=== PATIENT | male | born 1980 | race Caucasian/White ===

== ENCOUNTER 2024-07-03 13:00 | Outpatient (AMB) | payer MEDICAID, SELFPAY ==
--- NOTE | 2024-07-03 13:05 | A.OFFVIS_ITS ---
Vital Signs 07/03/24 13:07 Height 6 ft 2 in Weight 255 lb BMI 32.7 Intake Visit Reasons: CERTIFIED PROSTHETIST/ORTHOTIST- dupuytren's syndrome Intake Note: Mukesh is a 43 year old right hand dominant male who presents today as a new patient for severe Dupuytren's on both hands. Patient denies numbness and tingling. Patient states his middle, ring, and small fingers are catching, bilaterally. Patient is also concerned for bumps on right right thumb as well as multiple knuckles. Patient has tried warm cloths and OT without relief of his symptoms. Patient reports right thumb injury/laceration when he was a kid. Denies any surgeries to the hands. Allergies No Known Allergies Allergy (Verified 07/03/24 13:07) HPI HPI CERTIFIED PROSTHETIST/ORTHOTIST- dupuytren's syndrome: Details: Mukesh is a 43 year old right hand dominant man who presents with complaints of bilateral hand contractures He complains of contractures of his of his middle, ring, and small fingers bilaterally, R>L. He has found no relief from OT in the past. He also complains of bumps on his right thumb and multiple knuckles. He says he is new to having a primary care doctor, and is in the process of getting his health on track. He has a Hx of Hepatitis C, he says this has been treated but he is due for new blood work to confirm if this is still active or not He has a hx of a laceration to his right thumb as a child. He denies any prior surgeries. 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 He is worried he may be evicted soon He is on Adderall & Methadone. He has a hx of IVDU, with some active use of xylozene. [facility] Social History (Updated 07/03/24 @ 13:07 by MALLORY Tolbert) Current occupational status: unemployed Current occupation: rt handed Review of Systems Const All systems reviewed & are unremarkable except as noted in HPI and below Physical Exam Vital Signs: BMI result Body Mass Index 32.7 Const General: cooperative, healthy appearing and no acute distress Orientation/consciousness: patient oriented x3 HEENT Head: Yes normocephalic and Yes atraumatic Eyes EOM: EOMs intact bilaterally Resp Effort & Inspection: normal respiratory effort and able to speak in complete sentences Cardio Jugular venous distension: no JVD Skin General skin exam: turgor normal Rashes: no rashes Neuro General: patient oriented x3 Extrem Other: Evaluation of Bilateral Upper Extremity: The patient is alert, oriented, and in no acute distress Neuro: Median, Ulnar, Radial nerves motor and sensory intact and sensation is normal to the tips of all digits Vascular: Cap refill brisk ROM: Right hand: He can make a fist He has a Central Dupuytrens cord extending from the palm to the ring & small fingers of the right hand He has an ulnar cord extending from the palm to the middle & index fingers There is a cord extending up the radial side of the thumb, to the IP joint. No contractures in the thumb or index fingers Small finger: MCP 100/PIP 80 Ring finger: 85/95 Middle finger: 45/45 There are knuckle pads to all knuckles of his right hand, and the dorsum of the thumb Left hand: He can make a fist Central cord to small & ring fingers Small finger: MCP 95/PIP 85 Ring finger: 75/85 Middle finger: 40/5 Skin: No lacerations or abrasions. General: No Ecchymosis. No Erythema or evidence of infection. Psych Appearance: grossly normal Affect: normal affect Attitude: cooperative Assessment & Plan Assessment & Plan (1) Dupuytren's contracture of right hand: Code(s): M72.0 - Palmar fascial fibromatosis [Dupuytren] Category: Medical (2) Dupuytren contracture of left hand: Code(s): M72.0 - Palmar fascial fibromatosis [Dupuytren] Category: Medical (3) Knuckle pad of right hand: Code(s): M72.1 - Knuckle pads Category: Medical (4) Dupuytren's disease of palm of right hand: Code(s): M72.0 - Palmar fascial fibromatosis [Dupuytren] Category: Medical (5) Hepatitis C: Code(s): B19.20 - Unspecified viral hepatitis C without hepatic coma Category: Medical (6) Methadone use: Code(s): F11.90 - Opioid use, unspecified, uncomplicated Category: Medical Plan Assessment & Plan: 1. Right small finger Dupuytrens contracture MCP 100/PIP 80 2. Right ring finger Dupuytrens contracture MCP 85/PIP 95 3. Right middle finger Dupuytrens contracture MCP 45/PIP 45 I educated him about this condition I discussed operative and non-operative treatment options The patient would like to proceed with surgery, beginning with the right hand The risks and benefits of operative treatment were discussed with the patient and the patient wishes to proceed with surgery. These risks include, but are not limited to risk of damage to blood vessels, nerves, tendons, infection, recurrence, incomplete relief of preoperative symptoms, persistent pain, possible need for further surgery and the risks associated with regional blocks and anesthesia. The plan is to take the patient to the operating room sometime in the next few weeks for the following procedures: 1. Right small finger partial fasciectomy, under general 2. Right ring finger partial fasciectomy, under general 3. POSSIBLE Right middle finger partial fasciectomy, under general. (We may just release the cord to address MCP joint motion) All of the preoperative paperwork including the consent was reviewed today. All the patient's questions were answered. The patient understands that they will be contacted by our bung remover soon to schedule this procedure He denies Diabetes, blood thinners, asthma, heart, lung, kidney issues He has a Hx of Hepatitis C, which he says was treated but he needs a new blood test to confirm He is currently on methadone and has a Hx of IVDU He is unemployed and says he is being evicted, he is worried he will be homeless in the new year 4. Left small finger Dupuytrens contracture MCP 95/PIP 85 5. Left ring finger Dupuytrens contracture MCP 75/PIP 85 6. Left middle finger Dupuytrens contracture MCP 45/PIP 5 We can discuss treatment for his left hand at a later date 7. Right hand Dupuytrens disease With a cord extending to the thumb & index fingers No contractures in the thumb or index finger With knuckle pads to all digits of the right hand Please note that greater than 45 minutes was spent with this patient going over the history, evaluating the patient and radiographs, formulating possible treatment options, discussing them with the patient, and documenting the visit. Scribed for Dulce Guzmán MD by Adrien Smith, biomedical equipment technician, on 07/03/24 at 1:55 PM, EST. Coding Level of Care Code New Pt Level 5 (22362) Diagnoses Dupuytren's contracture of right hand M72.0 Dupuytren contracture of left hand M72.0 Knuckle pad of right hand M72.1 Dupuytren's disease of palm of right hand M72.0 Hepatitis C B19.20 Methadone use F11.90
[2024-07-03 13:07] VITALS: BMI 32.7
== END 2024-07-03 14:25 | disposition home or self-care (01) ==
PROVIDERS: PCP Internal Medicine; Visit Provider Orthopaedic Surgery
DX: M72.0 Palmar fascial fibromatosis [Dupuytren] (principal); M72.1 Knuckle pads; B19.20 Unspecified viral hepatitis C without hepatic coma; F11.90 Opioid use, unspecified, uncomplicated
CPT/HCPCS: 99204

== ENCOUNTER → 2024-07-03 13:00 | Outpatient (BNVA) | payer MEDICAID, SELFPAY | PROVIDERS: PCP Internal Medicine; Visit Provider Orthopaedic Surgery | DX: M72.0 Palmar fascial fibromatosis [Dupuytren] (principal); M72.1 Knuckle pads; B19.20 Unspecified viral hepatitis C without hepatic coma; F11.20 Opioid dependence, uncomplicated | CPT/HCPCS: 99202 ==

== ENCOUNTER 2024-11-20 11:25 | Outpatient (AMB) | payer MEDICAID, SELFPAY ==
--- NOTE | 2024-11-20 11:27 | A.OFFVIS_ITS ---
Vital Signs 11/20/24 11:35 Height 6 ft 2 in Weight 255 lb BMI 32.7 Intake Visit Reasons: Preop RT SF/RF/poss MF dupuytrens 11/29/24 AR Intake Note: Eddie 37 yr old male presents today for his pre- op visit for his right small finger /possible middle finger dupuytrens that is scheduled for 11/29/24. Consents have been signed and surgery questions have been answered. Allergies No Known Allergies Allergy (Verified 11/20/24 11:40) HPI HPI Preop RT SF/RF/poss MF dupuytrens 11/29/24 AR: Details: Mukesh is a 44 year old right hand dominant man who returns to discuss his right hand Dupuytrens contractures He complains of contractures of his of his middle, ring, and small fingers bilaterally, R>L. He is also worried he is developing a similar cord & contracture in his feet. He says he is in the process of getting his health on track. He has a PCP but says they are retiring this month and he is in the process of finding a new one. He has a Hx of Hepatitis C, he says this has been treated but he is due for new blood work to confirm if this is still active or not He has a hx of a laceration to his right thumb as a child. He denies any prior surgeries. 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 He is on Adderall & Methadone. He has a hx of IVDU, with some active use of xylozene. PENDING SALE TO [facility] Social History Current occupational status: unemployed Current occupation: rt handed Review of Systems Const All systems reviewed & are unremarkable except as noted in HPI and below Physical Exam Vital Signs: BMI result Body Mass Index 32.7 Const General: no acute distress and alert Orientation/consciousness: patient oriented x3 Neuro General: patient oriented x3 Extrem Other: Evaluation of Bilateral Upper Extremity: The patient is alert, oriented, and in no acute distress Neuro: Median, Ulnar, Radial nerves motor and sensory intact and sensation is normal to the tips of all digits Vascular: Cap refill brisk ROM: Right hand: He can make a fist He has a central Dupuytrens cord extending from the palm to the ring & small fingers of the right hand He has an ulnar cord extending from the palm to the middle & index fingers There is a cord extending up the radial side of the thumb, to the IP joint. No contractures in the thumb or index fingers Small finger: MCP 100/PIP 80 Ring finger: 85/95 Middle finger: 45/45 There are knuckle pads to all knuckles of his right hand, and the dorsum of the thumb Left hand: He can make a fist Central cord to small & ring fingers Small finger: MCP 95/PIP 85 Ring finger: 75/85 Middle finger: 40/5 Psych Appearance: grossly normal Affect: normal affect Attitude: cooperative Assessment & Plan Assessment & Plan (1) Dupuytren's contracture of right hand: Code(s): M72.0 - Palmar fascial fibromatosis [Dupuytren] Category: Medical (2) Dupuytren contracture of left hand: Code(s): M72.0 - Palmar fascial fibromatosis [Dupuytren] Category: Medical (3) Knuckle pad of right hand: Code(s): M72.1 - Knuckle pads Category: Medical (4) Dupuytren's disease of palm of right hand: Code(s): M72.0 - Palmar fascial fibromatosis [Dupuytren] Category: Medical (5) Hepatitis C: Code(s): B19.20 - Unspecified viral hepatitis C without hepatic coma Category: Medical (6) Methadone use: Code(s): F11.90 - Opioid use, unspecified, uncomplicated Category: Medical Plan Assessment & Plan: 1. Right small finger Dupuytrens contracture MCP 100/PIP 80 2. Right ring finger Dupuytrens contracture MCP 85/PIP 95 3. Right middle finger Dupuytrens contracture MCP 45/PIP 45 4. Right hand Dupuytrens disease With a cord extending to the thumb & index fingers No contractures in the thumb or index finger With knuckle pads to all digits of the right hand I educated him about these conditions I discussed operative and non-operative treatment options The patient would like to proceed with surgery, beginning with the right hand The risks and benefits of operative treatment were discussed with the patient and the patient wishes to proceed with surgery. These risks include, but are not limited to risk of damage to blood vessels, nerves, tendons, infection, recurrence, incomplete relief of preoperative symptoms, persistent pain, possible need for further surgery and the risks associated with regional blocks and anesthesia. The plan is to take the patient to the operating room sometime on 11/29/24 for the following procedures: 1. Right small finger partial fasciectomy, under general 2. Right ring finger partial fasciectomy, under general 3. POSSIBLE Right middle finger partial fasciectomy, under general. (We may just release the cord to address MCP joint motion) All of the preoperative paperwork including the consent was reviewed today. All the patient's questions were answered. The patient understands that they will be contacted by our medical appointment scheduler soon to schedule this procedure He denies Diabetes, blood thinners, asthma, heart, lung, kidney issues He currently lives with his girlfriend & has a stable home situation. He is currently unemployed He has a Hx of Hepatitis C, which he says was treated for in the past, but he needs a new blood test to confirm He is currently on methadone and has a Hx of IVDU He will need a same day OT appointment at his first post-op appointment to have a custom thermoplastic splint made for him. A referral has been made. 5. Left small finger Dupuytrens contracture MCP 95/PIP 85 6. Left ring finger Dupuytrens contracture MCP 75/PIP 85 7. Left middle finger Dupuytrens contracture MCP 45/PIP 5 We can discuss treatment for his left hand at a later date Scribed for Dulce Guzmán MD by Adrien Smith, rn medical surgical, on 11/20/24 at 11:40 AM, EST. Orders: Orders OT Evaluation and Treatment Today B19.20 - Unspecified viral hepatitis C without hepatic coma, F11.90 - Opioid use, unspecified, uncomplicated, M72.0 - Palmar fascial fibromatosis [Dupuytren] Coding Level of Care Code Est Pt Level 5 (60508) Diagnoses Dupuytren's contracture of right hand M72.0 Dupuytren contracture of left hand M72.0 Knuckle pad of right hand M72.1 Dupuytren's disease of palm of right hand M72.0 Hepatitis C B19.20 Methadone use F11.90
[2024-11-20 11:35] VITALS: BMI 32.7
== END 2024-11-20 11:52 | disposition home or self-care (01) ==
LOC: HO.HOS 11:25
PROVIDERS: PCP Internal Medicine; Visit Provider Orthopaedic Surgery
DX: M72.0 Palmar fascial fibromatosis [Dupuytren] (principal); M72.1 Knuckle pads; B19.20 Unspecified viral hepatitis C without hepatic coma; F11.90 Opioid use, unspecified, uncomplicated
CPT/HCPCS: 99024

== ENCOUNTER → 2024-11-20 11:25 | Outpatient (BNVA) | payer MEDICAID, SELFPAY | PROVIDERS: PCP Internal Medicine; Visit Provider Orthopaedic Surgery | DX: Z01.818 Encounter for other preprocedural examination (principal); M72.0 Palmar fascial fibromatosis [Dupuytren]; M72.1 Knuckle pads; B19.20 Unspecified viral hepatitis C without hepatic coma; F11.90 Opioid use, unspecified, uncomplicated | CPT/HCPCS: 99212 ==

== ENCOUNTER → 2024-11-29 06:27 | Day surgery (SDC) | payer MEDICAID, SELFPAY ==
[2024-11-27 13:03] VITALS: BMI 32.7
--- NOTE | 2024-11-28 10:20 | HO.ANESPROP2 ---
HPI - Anesthesia Eval Consult details Narrative: 44yo M for Right Dupuytrens Contracture Release small finger partial fasciectomy, ring finger fasciectomy, possible middle finger fasciectomy Methadone daily Hx IVDU - ? current xylozine use per ortho note PMFSH Active Problems Active Problems: All Active Problems Methadone use (Acute) Hepatitis C (Acute) Dupuytren's disease of palm of right hand (Acute) Knuckle pad of right hand (Acute) Dupuytren contracture of left hand (Acute) Dupuytren's contracture of right hand (Acute) Past Medical History Medical History (Updated 11/27/24 @ 13:02 by Kasandra Kern RN) ADD (attention deficit disorder) Methadone use Hepatitis C Surgical History Surgical History (Updated 11/27/24 @ 13:09 by Kasandra Kern RN) Surgical history unknown Social History Social History Current occupational status: unemployed Current occupation: rt handed Meds Allergies Allergy/AdvReac Type Severity Reaction Status Date / Time No Known Allergies Allergy Verified 11/20/24 11:40 Home Medications ?Medication ?Instructions ?Recorded ?Confirmed ?Last Taken ?Type dextroamphetamine-amphetamine 20 1 tab PO BID 06/29/24 11/27/24 Unknown History mg tablet lorazepam 1 mg tablet 1 mg PO TID PRN Anxiety 06/29/24 11/27/24 Unknown History methadone 10 mg/mL oral syringe 100 mg PO DAILY 07/03/24 11/27/24 Unknown History (FOR ORAL USE ONLY) Exam Height,Weight and Vital Signs: Height 6 ft 2 in Weight 115.666 kg Assessment and Plan Assessment Anesthesia Assessment: Chart Reviewed
[2024-11-29 06:58] VITALS: BMI 32.7
[2024-11-29 07:09] VITALS: BP 142/90; PULSE 100; RESP 18; TEMP 36.8; O2SAT 95
[2024-11-29 07:35] LABS: Amphetamine Screen Urine Not Detected (Not Detect); Barbiturates, Urine Not Detected (Not Detect); Benzodiazepines Screen Urine Not Detected (Not Detect); Buprenorphine Scr Not Detected (Not Detect); Cannabinoid Screen Urine Not Detected (Not Detect); Cocaine Screen Urine Not Detected (Not Detect); Fentanyl, urine POSITIVE (Not Detect); Methadone Screen, Urine Positive (Not Detect); Opiate Screen Urine POSITIVE (Not Detect); Oxycodone Screen Urine Positive (Not Detect); Phencyclidine Screen Urine Not Detected (Not Detect)
--- NOTE | 2024-11-29 07:45 | PC.NURSE ---
Dr. Tolentino updated regarding toxicology screen results. okay to proceed per her.
--- NOTE | 2024-11-29 09:23 | PC.NURSE ---
Unsuccessful IV attempts by author and wilton pulido rn. Anesthesia aware and discussed with patient toxicology screen and IV attempts and patient admitted to also doing xylozene and stated all drug use was 4 days ago. Decision made for patient to continue with methadone clinic and being clean from drugs for a lengthy time before reschedule. Patient left with all belongings and signed belonging sheet that he left with all of his belongings. Patient in agreeable with plan that anesthesiologist and dr. smith spoke to him about at length.
[2024-11-29 09:30] VITALS: BP 152/82; PULSE 79; RESP 16; TEMP 36.3; O2SAT 97
--- NOTE | 2024-11-29 09:42 | MHC.SHP ---
Pre-Procedural Eval Section A - 24 Hr Update-Section A only Date of Service: 11/29/24 The patient is an INPATIENT: No Changes since office visit: Yes Cold of Flu in the past 2 weeks, Yes New Medical Problems, Yes Changes in Medication and Yes Patient answered all questions The patient has been examined within 24 hours of the surgical procedure. The History & Physical has been completed within 30 days and I have reviewed it.: Yes Section B - Complete if H&P > 30 days Chief Complaint: Palmar fascial fibromatosis [Dupuytren] Allergies: Allergies Allergy/AdvReac Type Severity Reaction Status Date / Time No Known Allergies Allergy Verified 11/29/24 07:00 Plan I have reviewed the history and physical and performed a pertinent physical examination on my patient. No changes have occurred unless specified. Dr. Tolentino and I spoke with the patient in preop hold. He has just recently found a secure living placed and started again on methadone. Unfortunately he has still been using recreational street drugs and tested positive for fentanyl and other opiates. He also admitted to using trank among other drugs. As this is an elective procedure, we decided not to proceed with the surgery today and to give him time to get off of his recreational street drugs and just onto the methadone. I had a long conversation with him about why this is important. We will try and schedule this again in a couple of months if he says that he is on methadone only. In addition, numerous attempts were made start an IV and they were unable to do so. The feeling is that he will need to get a central line placed by Interventional Radiology the morning of surgery just prior to his procedure. With likely therefore make him a 2nd case in the morning and have him come in about 3 or 4 hours before surgery to 1st have a central line placed by Interventional Radiology, and then have his surgery. Time Spent With Patient Time: Total time managing care of this patient today ____ minutes.
== END ==
LOC: HO.SSS 06:28
PROVIDERS: Nurse Practitioner; PCP Internal Medicine; Visit Provider Orthopaedic Surgery
DX: M72.0 Palmar fascial fibromatosis [Dupuytren] (principal); Z53.8 Procedure and treatment not carried out for other reasons; R82.5 Elevated urine levels of drugs, medicaments and biological substances; F11.90 Opioid use, unspecified, uncomplicated
CPT/HCPCS: 80307; J0131; J0690